=== PATIENT | female | born 1965 ===

== ENCOUNTER 2017-02-18 15:09 | Observation (INO) | payer OTHER ==
[2017-02-18 15:24] VITALS: BP 116/80; PULSE 65; RESP 15; TEMP 98.8; O2SAT 97
[2017-02-18] MEDS ORDERED: Iohexol 240 (50 ml) PO ONE (16:22)
[2017-02-18] MEDS ORDERED: Sodium Chloride 0.9% 1,000 ML IV STA (16:22)
--- NOTE | 2017-02-18 16:28 | ED PDOC ---
HPI: Abdomen Time Seen by Provider: 02/18/17 16:12 Chief Complaint (Nursing): Abdominal Pain Chief Complaint (Provider): Abd pain History Per: Patient History/Exam Limitations: no limitations Onset/Duration Of Symptoms: Days (1 week) Current Symptoms Are (Timing): Still Present Additional Complaint(s): Abd pain diffuse. Bodyaches, diarrhea nonbloody. No weakness. No headaches. Feels light-headed off and on. No neck pain, cough, runny nose, chest pain, dyspnea. No fever. Has dysuria, freq of urination. No fever. Back pain mid and low back. No numbness, tingles, incontinence, constipation. Past Medical History Reviewed: Nursing Documentation, Vital Signs Vital Signs: Last Vital Signs Temp 98.8 F 02/18/17 15:22 Pulse 65 02/18/17 15:22 Resp 15 02/18/17 15:22 BP 116/80 02/18/17 15:22 Pulse Ox 97 02/18/17 16:31 - Medical History PMH: Hypothyroidism Denies: HIV, Chronic Kidney Disease - Family History Family History: States: Unknown Family Hx - Living Arrangements Living Arrangements: With Family - Social History Current smoker - smoking cessation education provided: No Alcohol: None Drugs: Denies - Home Medications Home Medications: Ambulatory Orders Medication Instructions Recorded Levothyroxine Sodium 1 PO DAILY 10/07/14 Sertraline HCl [Zoloft] 25 mg PO DAILY #0 tab 10/08/14 - Allergies Allergies/Adverse Reactions: Allergies Allergy/AdvReac Type Severity Reaction Status Date / Time ibuprofen Allergy RASH Verified 02/18/17 15:22 Review of Systems ROS Statement: Except As Marked, All Systems Reviewed And Found Negative Gastrointestinal: Positive for: Abdominal Pain, Diarrhea Genitourinary Female: Positive for: Dysuria, Frequency Musculoskeletal: Positive for: Other (bodyaches) Physical Exam - Reviewed Nursing Documentation Reviewed: Yes Vital Signs Reviewed: Yes - Physical Exam Appears: Positive for: Non-toxic, No Acute Distress Head Exam: Positive for: ATRAUMATIC, NORMAL INSPECTION, NORMOCEPHALIC Skin: Positive for: Normal Color, Warm, DRY Eye Exam: Positive for: EOMI, Normal appearance, PERRL ENT: Positive for: Normal ENT Inspection Neck: Positive for: Normal, Painless ROM Cardiovascular/Chest: Positive for: Regular Rate, Rhythm Respiratory: Positive for: CNT, Normal Breath Sounds Gastrointestinal/Abdominal: Positive for: Bowel Sounds, Soft, Tenderness ( diffuse) Back: Positive for: L CVA Tenderness, R CVA Tenderness Extremity: Positive for: Normal ROM. Negative for: Tenderness, Pedal Edema Neurologic/Psych: Positive for: Alert, Oriented - Laboratory Results Result Diagrams: 02/18/17 16:50 02/18/17 16:50 - ECG O2 Sat by Pulse Oximetry: 97 ED OBSERVATION Date of observation admission: 02/18/17 Time of observation admission: 16:26 - Observation admission statement Patient is being placed in observation because:: abd pain - Goals of Observation Goals of observation are:: abd pain - Progress Note Progress Note: 02/18/17 18:59 Dr. Reyes to fu on labs and imaging. Disposition - Clinical Impression Clinical Impression: Abdominal pain - Patient ED Disposition Is Patient to be Admitted: No - Disposition Disposition: Transfer of Care Disposition Time: 19:00 Condition: FAIR Patient Signed Over To: Tony Reyes
[2017-02-18] MEDS ORDERED: Iohexol 240 (50 ml) ONE (16:43)
[2017-02-18 17:11] LABS: BASO % 0.5 % (0.0-2.0); EOS % 1.1 % (0.0-4.0); HEMATOCRIT 42.8 % (34.0-47.0); LYMPH # 1.4 K/uL (1.0-4.3); LYMPH % 32.7 % (20.0-40.0); MEAN CELL VOLUME 92.2 fl (81.0-99.0); MEAN CORPUSCULAR HEMOGLOBIN 31.7 pg (27.0-31.0); MEAN CORPUSCULAR HGB CONC 34.4 g/dL (33.0-37.0); MEAN PLATELET VOLUME 7.6 fl (7.2-11.7); MONO # 0.5 K/uL (0.0-0.8); MONO % 11.2 % (0.0-10.0); NEUT # 2.3 K/uL (1.8-7.0); NEUT % 54.5 % (50.0-75.0); NRBC % 0.4 % (0.0-0.0); RED CELL DISTRIBUTION WIDTH 13.4 % (11.5-14.5); WHITE BLOOD COUNT 4.3 K/uL (4.8-10.8)
[2017-02-18 17:22] LABS: ALB/GLOB RATIO 1.1 (1.0-2.1); ALKALINE PHOSPHATASE 94 U/L (38-126); ALT/SGPT 48 U/L (9-52); AST/SGOT 44 U/L (14-36); BILIRUBIN,TOTAL 0.7 mg/dl (0.2-1.3); BLOOD UREA NITROGEN 10 mg/dl (7-17); CALCIUM 9.2 mg/dL (8.4-10.2); CARBON DIOXIDE 25 mmol/L (22-30); CHLORIDE 105 mmol/L (98-107); GFR AFRICAN-AMERICAN > 60; GLUCOSE,RANDOM 104 mg/dL (65-105); LIPASE 41 U/L (23-300); POTASSIUM 3.9 MMOL/L (3.6-5.0); SODIUM 137 mmol/l (132-148); TOTAL PROTEIN 7.5 G/DL (6.3-8.2)
[2017-02-18] MEDS ORDERED: Iohexol 300 100 ML IJ ONE (18:51)
[2017-02-18] MEDS ORDERED: Sodium Chloride 0.9% 50 ML IV ONE (18:51)
--- NOTE | 2017-02-18 20:14 | CT ---
EXAM: CT Abdomen and Pelvis With Intravenous Contrast CLINICAL HISTORY: 51 years old, female; Pain; Abdominal pain; Generalized; Additional info: Abd pain TECHNIQUE: Axial computed tomography images of the abdomen and pelvis with intravenous contrast. This CT exam was performed using one or more of the following dose reduction techniques: automated exposure control, adjustment of the mA and/or kV according to patient size, and/or use of iterative reconstruction technique. Coronal and sagittal reformatted images were created and reviewed. CONTRAST: 90 mL of [id number] administered intravenously. EXAM DATE/TIME: 02/18/2017 4:21 PM COMPARISON: None is available. FINDINGS: LIMITATIONS: Exam is somewhat limited by mild streak/motion artifact. LOWER THORAX: No infiltrate seen in the lung bases. ABDOMEN: LIVER: Fatty infiltration of the liver. Liver is enlarged. GALLBLADDER AND BILE DUCTS: No CT evidence of acute cholecystitis. No evidence of significant biliary ductal dilatation. PANCREAS: No CT evidence of acute pancreatitis. SPLEEN: No acute abnormality of the spleen identified. ADRENALS: No acute abnormality of the adrenal glands identified. KIDNEYS AND URETERS: No acute abnormality of the kidneys identified. No evidence of significant hydrouereteronephrosis. STOMACH AND BOWEL: Retained stool noted throughout the colon. Otherwise, no significant abnormality of the bowel is identified. No acute abnormality of the stomach or duodenum identified. No evidence of small bowel obstruction. APPENDIX: Normal appendix is not seen, and there are postsurgical changes near the cecum, which are likely from prior appendectomy. Recommend clinical correlation. PELVIS: BLADDER: Mild thickening of the bladder wall. REPRODUCTIVE: Endometrium appears abnormally thickened for the postmenopausal state, measuring 1.6 cm in AP dimensions, and it demonstrates peripheral enhancement. No evidence of large adnexal masses. ABDOMEN and PELVIS: INTRAPERITONEAL SPACE: No evidence of free intraperitoneal air or fluid. BONES/JOINTS: No acute fractures or other acute bony abnormality noted. SOFT TISSUES: Small umbilical hernia, containing only fat. VASCULATURE: No evidence of abdominal aortic aneurysm. No evidence of periaortic hemorrhage. LYMPH NODES: No evidence of diffuse lymphadenopathy. IMPRESSION: - Mild bladder wall thickening. This is a nonspecific finding, but can be seen with cystitis. Recommend clinical correlation. - Otherwise, no evidence of significant acute process. - Endometrium appears abnormally thickened for the postmenopausal state, and demonstrates peripheral enhancement. Pelvic ultrasound is recommended for further evaluation, not necessarily on an emergent basis, particularly if there is any history of abnormal vaginal bleeding. - Enlarged, fatty liver. - See above for remaining findings.
--- NOTE | 2017-02-18 21:51 | ED PDOC ---
- Laboratory Results Result Diagrams: 02/18/17 16:50 02/18/17 16:50 - ECG O2 Sat by Pulse Oximetry: 97 (RA) Pulse Ox Interpretation: Normal Medical Decision Making Medical Decision Makin signed over to me by Pratik Griffiths MD pending labs, imaging. 22:09 CT ABDOMEN FINDINGS: LIMITATIONS: Exam is somewhat limited by mild streak/motion artifact. LOWER THORAX: No infiltrate seen in the lung bases. ABDOMEN: LIVER: Fatty infiltration of the liver. Liver is enlarged. GALLBLADDER AND BILE DUCTS: No CT evidence of acute cholecystitis. No evidence of significant biliary ductal dilatation. PANCREAS: No CT evidence of acute pancreatitis. SPLEEN: No acute abnormality of the spleen identified. ADRENALS: No acute abnormality of the adrenal glands identified. KIDNEYS AND URETERS: No acute abnormality of the kidneys identified. No evidence of significant hydrouereteronephrosis. STOMACH AND BOWEL: Retained stool noted throughout the colon. Otherwise, no significant abnormality of the bowel is identified. No acute abnormality of the stomach or duodenum identified. No evidence of small bowel obstruction. APPENDIX: Normal appendix is not seen, and there are postsurgical changes near the cecum, which are likely from prior appendectomy. Recommend clinical correlation. PELVIS: BLADDER: Mild thickening of the bladder wall. REPRODUCTIVE: Endometrium appears abnormally thickened for the postmenopausal state, measuring 1.6 cm in AP dimensions, and it demonstrates peripheral enhancement. No evidence of large adnexal masses. ABDOMEN and PELVIS: INTRAPERITONEAL SPACE: No evidence of free intraperitoneal air or fluid. BONES/JOINTS: No acute fractures or other acute bony abnormality noted. SOFT TISSUES: Small umbilical hernia, containing only fat. VASCULATURE: No evidence of abdominal aortic aneurysm. No evidence of periaortic hemorrhage. LYMPH NODES: No evidence of diffuse lymphadenopathy. IMPRESSION: - Mild bladder wall thickening. This is a nonspecific finding, but can be seen with cystitis. Recommend clinical correlation. - Otherwise, no evidence of significant acute process. - Endometrium appears abnormally thickened for the postmenopausal state, and demonstrates peripheral enhancement. Pelvic ultrasound is recommended for further evaluation, not necessarily on an emergent basis, particularly if there is any history of abnormal vaginal bleeding. - Enlarged, fatty liver. - See above for remaining findings. US PELVIS FINDINGS: Uterus: Measures 8.3 x 3.3 x 5.4 cm. Endometrial stripe measures 1.3 cm in thickness, which is abnormally thickened for the postmenopausal state. It appears mildly heterogeneous. No evidence of significant associated flow/vascularity on color imaging. Heterogeneous, solid appearing 2.1 x 1.8 x 1.7 cm myometrial mass is seen, in the uterine fundus, most likely representing a submucosal fibroid. This abuts the endometrial stripe. Nabothian cyst incidentally noted in the cervix Right ovary: Could not be visualized. Left ovary: Somewhat poorly seen due to gas. Measures 2.2 x 1.6 x 2.3 cm, and contains a small 1.5 x 1.5 cm simple appearing cystic lesion. No followup is warranted based on the imaging findings, unless otherwise clinically indicated. Flow seen in the left ovary on color and Doppler imaging, with no evidence of torsion. Cul-de-sac: No free fluid. IMPRESSION: Abnormally thickened endometrium for t 00:[address] reports with pt at great length. 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 Pt will be discharged routinely and was given copies of the results from the US and CT. Advised to return immediately if condition persists or worsen. Condition is stable for discharge. Clinical Impression- Abdominal Pain Disposition - Clinical Impression Clinical Impression: Abdominal pain, Cystitis - POA Present On Arrival: None - Disposition Disposition: Routine/Home Disposition Time: 00:55 Condition: FAIR Additional Comments - Additional Comments Additional Comments: Scribe Attestation: Documented by Jabari Quick acting as a scribe for Kelsey Reyes MD. Scribmarsha Attestation: All medical record entries made by the Scribe were at my direction and personally dictated by me. I have reviewed the chart and agree that the record accurately reflects my personal performance of the history, physical exam, medical decision making, and the department course for this patient. I have also personally directed, reviewed, and agree with the discharge instructions and disposition.
--- NOTE | 2017-02-19 08:26 | CARD ---
APPROVED REPORT EKG Measurement Heart [id number] <Conclusion> Sinus bradycardia Otherwise normal ECG
--- NOTE | 2017-02-19 11:23 | US ---
Transvaginal pelvic ultrasound performed 10/18/16, CT abdomen pelvis with oral IV contrast performed 02/18/17 Indication: Endometrial thickening on CT, vaginal bleeding Technique: A real-time transabdominal pelvic ultrasound was performed. In addition, a transvaginal pelvic ultrasound was necessary to better depict pelvic anatomy. Comparison: CT abdomen and pelvis with contrast performed 02/18/17, transvaginal pelvic ultrasound performed 10/18/16. Findings: The uterus measures approximately 8.3 x 3.3 x 5.5 cm. Anteverted. Heterogeneous appearing endometrium measures approximately 1.3 cm, abnormally thickened for postmenopausal state. 2.1 x 1.8 x 1.7 cm probable uterine fundal fibroid, likely submucosal. This appears to abut the endometrial stripe. Nabothian cysts. The right ovary was not visualized. Poorly visualized left ovary measures approximately 1.6 x 2.3 x 4.3 cm and contains 1.5 cm simple appearing follicle/cyst. Blood flow is demonstrated to the left ovary. No significant pelvic free fluid identified. Impression: Abnormally thickened endometrium in a postmenopausal patient measuring approximately 1.3 cm. Additional workup is recommended. Probable 2.1 cm submucosal fundal fibroid. The right ovary is not visualized. Preliminary impression was provided by virtual radiologic.
== END 2017-02-19 01:56 | disposition home or self-care (01) ==
LOC: H.ER 15:09 → H.EROBSV 16:22
PROVIDERS: ADMIT Emergency Medicine; ATTEND Emergency Medicine
DX: N30.90 Cystitis, unspecified without hematuria (principal); K42.9 Umbilical hernia without obstruction or gangrene; K76.0 Fatty (change of) liver, not elsewhere classified; D25.0 Submucous leiomyoma of uterus; E03.9 Hypothyroidism, unspecified

== ENCOUNTER 2017-06-11 06:09 | Day surgery (SDC) | payer SELFPAY ==
[2017-06-07 08:46] VITALS: BMI 28.7
[2017-06-11] MEDS ORDERED: Lactated Ringer's 1,000 ML IV ONE (07:00)
[2017-06-11] MEDS ORDERED: Lactated Ringer's 1,000 ML IV SCH (09:03)
[2017-06-11] MEDS ORDERED: HYDROmorphone 0.5 mg/0.5 ml ISec IVP PRN (09:03)
[2017-06-11 11:15] VITALS: RESP 18
[2017-06-11 13:11] VITALS: BP 122/74; PULSE 69; TEMP 98.3; O2SAT 97
--- NOTE | 2017-06-12 06:15 | OP ---
PROCEDURE DATE: 06/11/2017 PREOPERATIVE DIAGNOSIS: Postmenopausal bleeding and thickened endometrium. POSTOPERATIVE DIAGNOSIS: Postmenopausal bleeding and thickened endometrium. PROCEDURE: Hysteroscopy with D and C and myomectomy with MyoSure. SURGEON: Dr. Eric Thurman. ANESTHESIA: General. INTRAVENOUS FLUIDS: 350 mL lactated Ringers. FLUIDS DEFICITS: 450 mL. URINE OUTPUT: 50 mL clear drain by red rubber catheter. ESTIMATED BLOOD LOSS: 20 mL. SPECIMEN: Endometrial curettings and fibroids. COMPLICATIONS: None. FINDINGS: Exam under anesthesia revealed a normal size anteverted uterus with normal contour and normal bilateral adnexa. Hysteroscopy showed 2 fibroids seen on the right lateral wall of the uterus, submucosal 1 to 1.5 cm each otherwise atrophic endometrium noted bilateral ostia seen and appeared normal. INDICATION: This is a 51-year-old female who presented to the preop area for scheduled hysteroscopy and D and C and a possible polypectomy, myomectomy, due to postmenopausal bleeding and thickened endometrium. She had a history of postmenopausal bleeding and an attempt was made for endometrial biopsy in the office, but due to a stenotic os this was unable to be performed. The risks and benefits and alternatives of the procedure were discussed with the patient with Nauruan interpretation and the consent was signed prior to the procedure. She understood the risk of the procedure including, but not limited to uterine perforation, bleeding, infection, fluid overload and a rare risk of the and she wished to proceed. DESCRIPTION OF PROCEDURE: The patient was taken to the operating room where general anesthesia was given without difficulty. She was then placed in dorsal lithotomy position with Candy Cane Stirrups and exam under anesthesia revealed a normal size anteverted uterus and the findings noted above. The patient was then prepped and draped in normal sterile fashion. A weighted speculum was inserted in the posterior aspect of the vagina and a single tooth tenaculum was used to grasp the anterior lip of the cervix. The uterus was carefully sounded to 8.5 cm. The cervical os was then sequentially dilated to accommodate the MyoSure scope. The hysteroscope was then introduced under direct visualization and the uterus was distend with normal saline. The aforementioned findings were noted. The MyoSure device was then introduced and was then activated for removal of the 2 fibroids on the lateral uterine wall. Good hemostasis was then noted. Further inspection of the cavity revealed atrophic endometrium and the ostia were seen and appeared normal. The hysteroscope and MyoSure device was then withdrawn. The uterus was then curetted in a clockwise fashion until the gritty texture was noted in all aspects of the uterus. Following this the tenaculum was removed from the cervix and good hemostasis was noted at the puncture site. The patient tolerated the procedure well. The instrument and sponge counts were correct. The patient was awaked from general anesthesia and taken to the recovery room in stable condition. The patient will go home after recovering from anesthesia and meeting all criteria for discharge. She was given instructions of followup in the [facility] in [facility] to continue pelvic rest and given a prescription for Tylenol for pain. Eric Thurman MD
== END 2017-06-11 13:30 | disposition home or self-care (01) ==
LOC: H.OPSURG 06:09
PROVIDERS: ATTEND Obstetrics & Gynecology
DX: N95.0 Postmenopausal bleeding (principal); E03.9 Hypothyroidism, unspecified; R93.8 Abnormal findings on diagnostic imaging of other specified body structures

== ENCOUNTER 2017-08-16 09:22 | Emergency (ER) | payer SELFPAY ==
[2017-08-16 09:24] VITALS: BMI 28.7
[2017-08-16 09:40] VITALS: BP 101/64; PULSE 63; RESP 19; TEMP 98.1; O2SAT 100
[2017-08-16] MEDS ORDERED: Lidocaine 5% Patch TD STA (09:57)
--- NOTE | 2017-08-16 10:11 | ED PDOC ---
HPI: Back Time Seen by Provider: 08/16/17 09:47 Chief Complaint (Nursing): Back Pain Chief Complaint (Provider): Back Pain History Per: Patient History/Exam Limitations: no limitations Onset/Duration Of Symptoms: Days (x 2-3) Current Symptoms Are (Timing): Still Present Additional Complaint(s): Nell is a 52 y/o female who presents to the ED complaining of left-sided low back pain, progressively worsening for the past 2-3 days. No medications taken for pain relief, out of concern for allergy to Ibuprofen. Pain does not radiate to the lower extremities, and is not associated with bladder or bowel problems. No fever, chills, urinary frequency, dysuria, or incontinence. PMD: Cooper Maradiaga Past Medical History Reviewed: Historical Data, Nursing Documentation, Vital Signs Vital Signs: Last Vital Signs Temp 98.1 F 08/16/17 09:33 Pulse 63 08/16/17 09:33 Resp 19 08/16/17 09:33 BP 101/64 08/16/17 09:33 Pulse Ox 100 08/16/17 09:33 - Medical History PMH: Depression, Hyperthyroidism, Hypothyroidism Denies: HIV, Chronic Kidney Disease - Surgical History Surgical History: Appendectomy (2005), Cholecystectomy, - Family History Family History: States: Unknown Family Hx - Social History Current smoker - smoking cessation education provided: No Alcohol: None Drugs: Denies - Home Medications Home Medications: Ambulatory Orders Medication Instructions Recorded Acetaminophen [Tylenol 325mg tab] 325 mg PO Q4 PRN 06/11/17 Levothyroxine [Synthroid] 75 mcg PO DAILY 06/11/17 Acetaminophen 3 tab PO TID PRN #50 tablet 08/16/17 Cyclobenzaprine [Cyclobenzaprine 10 mg PO TID #30 tab 08/16/17 HCl] - Allergies Allergies/Adverse Reactions: Allergies Allergy/AdvReac Type Severity Reaction Status Date / Time ibuprofen Allergy RASH Verified 06/11/17 06:42 Review of Systems ROS Statement: Except As Marked, All Systems Reviewed And Found Negative Constitutional: Negative for: Fever, Chills Gastrointestinal: Negative for: Nausea, Vomiting, Abdominal Pain Genitourinary Female: Negative for: Dysuria, Frequency, Incontinence Musculoskeletal: Positive for: Back Pain Physical Exam - Reviewed Nursing Documentation Reviewed: Yes Vital Signs Reviewed: Yes - Physical Exam Appears: Positive for: No Acute Distress (examined lying on stretcher), Uncomfortable (Mild moderate discomfort) Head Exam: Positive for: ATRAUMATIC, NORMAL INSPECTION, NORMOCEPHALIC Skin: Positive for: Normal Color, Warm, Dry Eye Exam: Positive for: EOMI, Normal appearance, PERRL Neck: Positive for: Normal, Painless ROM, Supple Cardiovascular/Chest: Positive for: Regular Rate, Rhythm (with normal S1, S2). Negative for: Murmur Respiratory: Positive for: Normal Breath Sounds. Negative for: Respiratory Distress Gastrointestinal/Abdominal: Positive for: Normal Exam, Soft. Negative for: Tenderness Back: Positive for: Normal Inspection, Other (tenderness to the left paraspinal muscles. Pain elicited in the lower lumbar area with leg lift on both sides and with flexion of the hip.) Extremity: Positive for: Normal ROM, Other (Motor strength 5/5 upper and lower extremities). Negative for: Pedal Edema, Deformity Neurologic/Psych: Positive for: Alert, Oriented. Negative for: Motor/Sensory Deficits - ECG O2 Sat by Pulse Oximetry: 100 (RA) Pulse Ox Interpretation: Normal Medical Decision Making Medical Decision Making: Urine dip negative for blood and WBCs. Initial Impression: Muscle spasm Time: 9:57 Initial Plan: --Tylenol 975 mg PO --Lidoderm TD --Flexeril 10 mg PO --Urine dipstick and test Time: 11:20 --Patient reports feeling better, and is stable for discharge home. Counseling was provided and all questions were answered regarding diagnosis and need for follow up with PMD. There is agreement to discharge plan. Return if symptoms persist or worsen. Scribe Attestation: Documented by Maeve Lancaster, acting as a scribe for Yahaira Roa MD Provider Scribe Attestation: All medical record entries made by the Scribe were at my direction and personally dictated by me. I have reviewed the chart and agree that the record accurately reflects my personal performance of the history, physical exam, medical decision making, and the department course for this patient. I have also personally directed, reviewed, and agree with the discharge instructions and disposition. 11.15a - patient feeling better. Will d/c on meds given here and advise outpatient followup. Disposition - Clinical Impression Clinical Impression: Back strain - Patient ED Disposition Is Patient to be Admitted: No Doctor Will See Patient In The: Office Counseled Patient/Family Regarding: Diagnosis, Need For Followup, Rx Given - Disposition Referrals: [facility] [Outside] [facility] [Outside] [facility] [Outside] Disposition: Routine/Home Disposition Time: 11:15 Condition: IMPROVED Prescriptions: Acetaminophen 3 tab PO TID PRN #50 tablet PRN Reason: Pain, Moderate (4-7) Cyclobenzaprine [Cyclobenzaprine HCl] 10 mg PO TID #30 tab Instructions: Back Exercises (ED), Muscle Spasm (ED), Lidocaine Patch (On the skin) Forms: [employer] [facility] (Moroccan), [facility] ED School/Work Excuse Print Language: LITHUANIAN - POA Present On Arrival: None
== END 2017-08-16 11:44 | disposition home or self-care (01) ==
LOC: H.ER 09:22
DX: M62.838 Other muscle spasm (principal); E03.9 Hypothyroidism, unspecified; E05.90 Thyrotoxicosis, unspecified without thyrotoxic crisis or storm; F32.9 Major depressive disorder, single episode, unspecified

== ENCOUNTER 2018-12-10 10:32 | Emergency (ER) | payer SELFPAY ==
[2018-12-10 10:46] VITALS: BMI 26.9
--- NOTE | 2018-12-10 12:22 | ED PDOC ---
HPI: General Adult Time Seen by Provider: 12/10/18 11:00 Chief Complaint (Provider): Fall/Trauma History Per: Patient, [employer]board [employer] ( [id number]) History/Exam Limitations: no limitations Onset/Duration Of Symptoms: Days (x1) Current Symptoms Are (Timing): Still Present Additional Complaint(s): 53 year old female with no significant past medical history who is presenting to the ED for evaluation of possible injuries after fall. Patient states that yesterday around 3:30 pm, she slipped on ice and hit the back of her head, neck, and entire upper body hurts. She reports that she was able to walk right after but reports pain to all of upper body. Patient denies any loss of consciousness, nausea or vomiting. PMD: Dr. Reyna Past Medical History Reviewed: Historical Data, Nursing Documentation, Vital Signs Vital Signs: Last Vital Signs Temp 98.6 F 12/10/18 10:46 Pulse 57 L 12/10/18 10:46 Resp 17 12/10/18 10:46 BP 121/73 12/10/18 10:46 Pulse Ox 95 12/10/18 10:46 - Medical History PMH: Depression, Hyperthyroidism, Hypothyroidism Denies: HIV, Chronic Kidney Disease - Surgical History Surgical History: Appendectomy (2005), Cholecystectomy, - Family History Family History: States: Unknown Family Hx - Social History Ex-Smoker (has not smoked in the last 12 months): No Alcohol: None Drugs: Denies - Home Medications Home Medications: Ambulatory Orders Medication Instructions Recorded Acetaminophen [Tylenol 325mg tab] 325 mg PO Q4 PRN 06/11/17 Levothyroxine [Synthroid] 75 mcg PO DAILY 06/11/17 Cyclobenzaprine [Cyclobenzaprine 10 mg PO TID #30 tab 08/16/17 HCl] Lidocaine 5% [Lidoderm] 1 patch TD DAILY #10 patch 08/16/17 RX: Acetaminophen 3 tab PO TID PRN #50 tablet 08/16/17 - Allergies Allergies/Adverse Reactions: Allergies Allergy/AdvReac Type Severity Reaction Status Date / Time ibuprofen Allergy RASH Verified 06/11/17 06:42 Review of Systems ROS Statement: Except As Marked, All Systems Reviewed And Found Negative Gastrointestinal: Negative for: Nausea, Vomiting Musculoskeletal: Positive for: Neck Pain, Shoulder Pain, Arm Pain, Back Pain Neurological: Positive for: Headache. Negative for: Other (LOC) Physical Exam - Reviewed Nursing Documentation Reviewed: Yes Vital Signs Reviewed: Yes - Physical Exam Appears: Positive for: Non-toxic, No Acute Distress Head Exam: Positive for: ATRAUMATIC, NORMAL INSPECTION, NORMOCEPHALIC Skin: Positive for: Normal Color (No hematomas noted to upper body, no echhymosis noted, no lacerations noted ), Warm Eye Exam: Positive for: Normal appearance, EOMI, PERRL ENT: Positive for: Normal ENT Inspection Neck: Positive for: Normal, Painless ROM, Supple Cardiovascular/Chest: Positive for: Regular Rate, Rhythm. Negative for: Murmur Respiratory: Positive for: Normal Breath Sounds. Negative for: Respiratory Distress Gastrointestinal/Abdominal: Positive for: Normal Exam, Soft Back: Positive for: Normal Inspection. Negative for: L CVA Tenderness, R CVA Tenderness, Vertebral Tenderness Extremity: Positive for: Normal ROM. Negative for: Deformity, Swelling Neurologic/Psych: Positive for: Alert, Oriented. Negative for: Motor/Sensory Deficits, Facial Droop - ECG O2 Sat by Pulse Oximetry: 95 (RA) Medical Decision Making Medical Decision Making: Time: 12:16 Plan: [facility] post mechanical fall rule out fracture --CT Cervical spine --CT head --Tylenol [address] Head: FINDINGS: HEMORRHAGE: No intracranial hemorrhage. BRAIN: No mass effect or edema. No atrophy or chronic microvascular ischemic changes. VENTRICLES: Unremarkable. No hydrocephalus. CALVARIUM: Unremarkable. PARANASAL SINUSES: Unremarkable as visualized. No significant inflammatory changes. MASTOID AIR CELLS: Unremarkable as visualized. No inflammatory changes. OTHER FINDINGS: None. IMPRESSION: Normal CT of the Head. No acute intracranial hemorrhage. CT Cervical Spine: FINDINGS: VERTEBRAE: The vertebral bodies are maintained in height. Normal vertebral alignment is maintained. There is straightening of the normal lordotic curvature indicating possible muscular spasm. The atlantoaxial articulation and odontoid process are intact. DISCS/SPINAL CANAL/NEURAL FORAMINA: There is minimal narrowing of the C6-7 intervertebral disc space consistent with degenerative disc disease. The remaining intervertebral disc spaces are maintained in height. There is no spinal or neural foraminal stenosis appreciated. PARASPINAL SOFT TISSUES: Unremarkable. OTHER FINDINGS: None. IMPRESSION: No fracture/dislocation. Possible muscular spasm. Minimal degenerative disc disease at C6-7. ........................................................................... pt feels improved on reeval. pt aware of results of imaging pt stable for discharge Scribe Attestation: Documented by Melissa Cast, acting as a scribe for Stephanie Colunga MD. Provider Scribe Attestation: All medical record entries made by the Scribe were at my direction and personally dictated by me. I have reviewed the chart and agree that the record accurately reflects my personal performance of the history, physical exam, medical decision making, and the department course for this patient. I have also personally directed, reviewed, and agree with the discharge instructions and disposition. Disposition - Clinical Impression Clinical Impression: Fall from slip, trip, or stumble - Patient ED Disposition Is Patient to be Admitted: No Counseled Patient/Family Regarding: Studies Performed, Diagnosis, Need For Followup - Disposition Disposition: Routine/Home Disposition Time: 12:20 Condition: IMPROVED Additional Instructions: follow up with your primary doctor in 1-2 days return to the ED with any worsening or concerning symptoms Instructions: Preventing Falls Forms: WALTOP (S[place] T[place]an), WALTOP (Frisian) Print Language: PARAGUAYAN
--- NOTE | 2018-12-10 13:53 | CT ---
Date of service: 12/10/2018 PROCEDURE: CT HEAD WITHOUT CONTRAST. HISTORY: headache COMPARISON: None available. TECHNIQUE: Axial computed tomography images were obtained through the head/brain without intravenous contrast. Radiation dose: Total exam DLP = 687.86 mGy-cm. This CT exam was performed using one or more of the following dose reduction techniques: Automated exposure control, adjustment of the mA and/or kV according to patient size, and/or use of iterative reconstruction technique. FINDINGS: HEMORRHAGE: No intracranial hemorrhage. BRAIN: No mass effect or edema. No atrophy or chronic microvascular ischemic changes. VENTRICLES: Unremarkable. No hydrocephalus. CALVARIUM: Unremarkable. PARANASAL SINUSES: Unremarkable as visualized. No significant inflammatory changes. MASTOID AIR CELLS: Unremarkable as visualized. No inflammatory changes. OTHER FINDINGS: None. IMPRESSION: Normal CT of the Head. No acute intracranial hemorrhage.
--- NOTE | 2018-12-10 13:57 | CT ---
Date of service: 12/10/2018 PROCEDURE: CT Cervical Spine without contrast HISTORY: neck pain COMPARISON: None available. TECHNIQUE: Axial computed tomography images were obtained of the cervical spine without the use of intravenous contrast. Coronal and sagittal reformatted images were created and reviewed. Radiation dose: Total exam DLP = 366.98 mGy-cm. This CT exam was performed using one or more of the following dose reduction techniques: Automated exposure control, adjustment of the mA and/or kV according to patient size, and/or use of iterative reconstruction technique. FINDINGS: VERTEBRAE: The vertebral bodies are maintained in height. Normal vertebral alignment is maintained. There is straightening of the normal lordotic curvature indicating possible muscular spasm. The atlantoaxial articulation and odontoid process are intact. DISCS/SPINAL CANAL/NEURAL FORAMINA: There is minimal narrowing of the C6-7 intervertebral disc space consistent with degenerative disc disease. The remaining intervertebral disc spaces are maintained in height. There is no spinal or neural foraminal stenosis appreciated. PARASPINAL SOFT TISSUES: Unremarkable. OTHER FINDINGS: None. IMPRESSION: No fracture/dislocation. Possible muscular spasm. Minimal degenerative disc disease at C6-7.
[2018-12-10 15:19] VITALS: BP 109/74; PULSE 62; RESP 16; TEMP 98
[2018-12-11 18:24] VITALS: O2SAT 95
== END 2018-12-10 15:29 | disposition home or self-care (01) ==
LOC: H.ER 10:32
DX: S09.90XA Unspecified injury of head, initial encounter (principal); M54.2 Cervicalgia; M54.9 Dorsalgia, unspecified; M25.519 Pain in unspecified shoulder; W00.0XXA Fall on same level due to ice and snow, initial encounter; Y92.89 Other specified places as the place of occurrence of the external cause; E03.9 Hypothyroidism, unspecified; E05.90 Thyrotoxicosis, unspecified without thyrotoxic crisis or storm